=== PATIENT | male | born 1985 | race Caucasian/White ===

== ENCOUNTER 2017-12-06 15:08 | Emergency (ER) | payer BC, OTHER ==
[2017-12-06] MEDS: DIPHTH/TET/ACEL PERTUSS (ADULT) 0.5 ML VIAL IM* (19:29)
== END 2017-12-06 21:25 | disposition home or self-care (01) ==
LOC: FTE 15:08
DX: S61.011A Laceration without foreign body of right thumb without damage to nail, initial encounter (principal); W26.8XXA Contact with other sharp object(s), not elsewhere classified, initial encounter; Y92.9 Unspecified place or not applicable; Z23 Encounter for immunization
CPT/HCPCS: 12001; 73140; 90471; 90715; 99283-25

== ENCOUNTER 2018-01-13 14:22 | Day surgery (SDC) | payer BC ==
[~2018-01-13 14:22] MED LIST: LACTATED RINGER'S 1,000 ML IV*
[2018-01-13 16:17] LABS: ADD MAN DIFF? NO
[2018-01-13 16:22] LABS: BASOPHILS % 0.4 % (0.0-2.0); EOSINOPHILS # 0.2 10^3/ul (0.0-0.5); EOSINOPHILS % 2.3 % (0.0-7.0); HEMATOCRIT 45.5 % (42.0-52.0); LYMPHOCYTES # 3.2 10^3/ul (0.8-2.9); MEAN CORPUSCULAR HEMOGLOBIN 29.7 pg (29.0-33.0); MEAN CORPUSCULAR HGB CONC 35.2 g/dl (32.0-37.0); MEAN CORPUSCULAR VOLUME 84.4 fl (82.0-101.0); MEAN PLATELET VOLUME 10.4 fl (7.4-10.4); MONOCYTE # 0.5 10^3/ul (0.3-0.9); MONOCYTES % 5.5 % (0.0-11.0); NEUTROPHIL # 5.1 10^3/ul (1.6-7.5); NEUTROPHILS % 55.9 % (39.0-77.0); PLATELET COUNT 264 10^3/UL (140-415); RED BLOOD COUNT 5.39 10^6/ul (4.70-6.10); RED CELL DISTRIBUTION WIDTH 13.1 % (11.5-14.5)
[2018-01-13 16:22] LABS: WHITE BLOOD COUNT 9.2 10^3/ul (4.8-10.8)
[2018-01-13 16:38] LABS: ALANINE AMINOTRANSFERASE 43 IU/L (13-69); ALBUMIN 4.5 g/dl (3.3-4.9); ALBUMIN/GLOBULIN RATIO 1.21; ALKALINE PHOSPHATASE 91 IU/L (42-121); ANION GAP 19 (8-16); ASPARTATE AMINO TRANSFERASE 31 IU/L (15-46); BILIRUBIN,INDIRECT 0.5 mg/dl (0-1.1); BILIRUBIN,TOTAL 0.5 mg/dl (0.2-1.3); CARBON DIOXIDE 23 mmol/L (21-31); CHLORIDE 108 mmol/L (97-110); GLUCOSE 81 mg/dl (70-220); TOTAL PROTEIN 8.2 g/dl (6.1-8.1)
[2018-01-13 16:48] LABS: BLOOD UREA NITROGEN 20 mg/dl (7-20); CALCIUM 9.5 mg/dl (8.4-10.2); CREATININE 1.03 mg/dl (0.61-1.24); POTASSIUM 3.8 mmol/L (3.5-5.1); SODIUM 146 mmol/L (135-144)
[2018-01-13 16:56] LABS: INR 1.01; PROTIME 13.4 Sec (11.9-14.9)
[2018-01-13 16:57] LABS: PARTIAL THROMBOPLASTIN TIME 28.2 Sec (25.0-35.0)
[2018-01-13] MEDS ORDERED: BUPIVACAINE 0.5% (SDV) 30 ML INJ (17:04)
[2018-01-13] MEDS ORDERED: ROCURONIUM 50 MG INJ (17:20)
[2018-01-13] MEDS ORDERED: PROPOFOL 20 ML (17:20)
[2018-01-13] MEDS ORDERED: MIDAZOLAM 1 MG/ML 2 ML INJ (17:20)
[2018-01-13] MEDS ORDERED: METOCLOPRAMIDE 10 MG INJ IV (17:30)
[2018-01-13] MEDS ORDERED: LABETALOL HCL 20MG INJ IV (17:30)
[2018-01-13] MEDS ORDERED: EPHEDrine SULFATE 50 MG/5 ML SYG IV (17:30)
[2018-01-13] MEDS ORDERED: MEPERIDINE 25 MG INJ IV (17:30)
[2018-01-13] MEDS ORDERED: hydrALAzine 20 MG INJ IV (17:30)
[2018-01-13] MEDS ORDERED: FENTAnyl 50 MCG/ML VIAL IV ×2 (17:30)
[2018-01-13] MEDS ORDERED: OXYCODONE/ACETAMINOPHEN (5/325) TAB PO ×2 (17:30)
[2018-01-13] MEDS ORDERED: ONDANSETRON 4 MG INJ IV (17:30)
[2018-01-13] MEDS ORDERED: DIPHENHYDRAMINE 50 MG INJ IV (17:30)
[2018-01-13] MEDS ORDERED: HYDROmorphONE (0.2 MG/ML) 10ML SYG IV ×3 (17:30)
[2018-01-13] MEDS ORDERED: KETOROLAC 30 MG INJ (17:38)
[2018-01-13] MEDS ORDERED: DEXAMETHASONE 4 MG/ML 1 ML INJ (17:38)
[2018-01-13] MEDS ORDERED: METOCLOPRAMIDE 10 MG INJ (17:38)
[2018-01-13] MEDS ORDERED: CEFAZOLIN 1 GM INJ (17:38)
[2018-01-13] MEDS ORDERED: ONDANSETRON 4 MG INJ (17:38)
[2018-01-13] MEDS ORDERED: ACETAMINOPHEN 1000MG/100ML IV 100 ML (17:58)
[2018-01-13] MEDS: BUPIVACAINE 0.5% 30 ML VIAL INJ (18:00)
[2018-01-13] MEDS ORDERED: FENTAnyl 50 MCG/ML VIAL (18:07)
[2018-01-13] MEDS ORDERED: SUGAMMADEX SODIUM 200 MG/2 ML VIAL IV (18:17)
[2018-01-13] MEDS ORDERED: HYDROCODONE/APAP (5/325) TAB PO (19:30)
== END 2018-01-13 20:20 | disposition home or self-care (01) ==
LOC: SDS 14:22
DX: S66.211A Strain of extensor muscle, fascia and tendon of right thumb at wrist and hand level, initial encounter (principal); I10 Essential (primary) hypertension; E78.5 Hyperlipidemia, unspecified; W26.8XXA Contact with other sharp object(s), not elsewhere classified, initial encounter; Y93.9 Activity, unspecified; Y99.9 Unspecified external cause status; Y92.9 Unspecified place or not applicable
CPT/HCPCS: 26418; 73140; 80053; 85025; 85610; 85730

== ENCOUNTER 2018-08-25 11:46 | Emergency (ER) | payer BC ==
[2018-08-25] MEDS: IBUPROFEN 600 MG TAB PO (13:55)
[2018-08-25] MEDS: ACETAMINOPHEN 500 MG TAB PO (13:55)
== END 2018-08-25 14:21 | disposition home or self-care (01) ==
LOC: FTE 11:46
DX: H66.92 Otitis media, unspecified, left ear (principal); F17.210 Nicotine dependence, cigarettes, uncomplicated
CPT/HCPCS: 99283; Z7502